=== PATIENT | female | born 1990 | race Two or more races ===

== ENCOUNTER → 2020-06-02 | Outpatient (CLI) | payer OTHER | END | disposition home or self-care (01) | LOC: OFIC 805 10:15 | PROVIDERS: ATTEND Otolaryngology | DX: G50.1 Atypical facial pain (principal); H74.8X3 Other specified disorders of middle ear and mastoid, bilateral; H69.83 Other specified disorders of Eustachian tube, bilateral; R09.81 Nasal congestion ==

== ENCOUNTER 2020-07-13 13:05 | Outpatient (CLI) | payer OTHER | END 2020-07-13 18:10 | disposition home or self-care (01) | LOC: OFIC 805 13:05 | PROVIDERS: ATTEND Otolaryngology | DX: H74.8X3 Other specified disorders of middle ear and mastoid, bilateral (principal); G50.1 Atypical facial pain; R09.81 Nasal congestion; H69.83 Other specified disorders of Eustachian tube, bilateral; J34.3 Hypertrophy of nasal turbinates ==

== ENCOUNTER 2020-07-26 10:36 | Outpatient (CLI) | payer OTHER | END 2020-07-31 10:34 | disposition home or self-care (01) | LOC: OFIC 805 10:36 | PROVIDERS: ATTEND Otolaryngology | DX: J34.3 Hypertrophy of nasal turbinates (principal); G50.1 Atypical facial pain; R09.81 Nasal congestion; J34.2 Deviated nasal septum ==